=== PATIENT | female | born 1950 | race Caucasian/White ===

== ENCOUNTER → 2021-03-15 | Outpatient (CLI) | payer MEDICARE ==
[~2021-03-15] MED LIST: AMIT50TA PO; ASPI-614 PO; CYCL10TA2 PO; INSU100I11 SQ-INSULIN; MOEX7.5T2 PO; OMNIPAQUE 350 MG/ML, 75ML BOTTLE ONE; ZOLP10TA PO
== END | disposition home or self-care (01) ==
LOC: CFH 09:24
PROVIDERS: ATTEND Family Medicine
DX: R91.8 Other nonspecific abnormal finding of lung field (principal)
CPT/HCPCS: 71260; Q9967

== ENCOUNTER 2021-04-19 13:26 | Outpatient (CLI) | payer MEDICARE ==
[~2021-04-19 13:26] MED LIST changes: -OMNIPAQUE 350 MG/ML, 75ML BOTTLE ONE
== END 2021-04-19 23:59 | disposition home or self-care (01) ==
LOC: CFH 13:26
PROVIDERS: ATTEND Family Medicine
DX: Z12.31 Encounter for screening mammogram for malignant neoplasm of breast (principal)
CPT/HCPCS: 77063; 77067